=== PATIENT | female | born 1975 | race Two or more races ===

== ENCOUNTER 2019-06-16 12:49 | Outpatient (CLI) | payer OTHER | END 2019-06-16 13:18 | disposition home or self-care (01) | LOC: LAB 12:49 | DX: N20.0 Calculus of kidney (principal); C18.9 Malignant neoplasm of colon, unspecified ==

== ENCOUNTER 2019-06-17 07:18 | Outpatient (CLI) | payer OTHER | END 2019-06-17 07:21 | disposition home or self-care (01) | LOC: TOM 07:18 | DX: D12.2 Benign neoplasm of ascending colon (principal); C18.9 Malignant neoplasm of colon, unspecified ==

== ENCOUNTER 2019-06-21 11:10 | Inpatient (IN) | payer OTHER ==
[2019-06-29] MEDS ORDERED: SPRINTEC 28 DA1 EACH (07:58)
[2019-07-04] MEDS ORDERED: HYOSCYAMINE0.125 M1 SL (16:08)
[2019-07-04] MEDS ORDERED: QUESTRAN PACKET4 GM PO (16:10)
[2019-07-04] MEDS ORDERED: TUSSIN DM LIQU118 ML PO (16:10)
[2019-07-04] MEDS ORDERED: LEVAQUIN500 MG PO (16:13)
[2019-07-04] MEDS ORDERED: ULTRACET PO (16:14)
== END 2019-07-04 17:35 | disposition home or self-care (01) | DRG 330 ==
LOC: SURH 06-29 07:04 → O/R 06-29 07:04 → SURG 06-29 09:45 → SURH 06-29 15:24
PROVIDERS: ADMIT Surgery
PROC: 07TB4ZZ Resection of Mesenteric Lymphatic, Percutaneous Endoscopic Approach (ICD-10-PCS; 2019-06-29)
PROC: 0DTF4ZZ Resection of Right Large Intestine, Percutaneous Endoscopic Approach (ICD-10-PCS; principal; 2019-06-29 12:00)
DX: C18.2 Malignant neoplasm of ascending colon (principal); J98.11 Atelectasis; R59.0 Localized enlarged lymph nodes

== ENCOUNTER 2023-09-22 08:21 | Outpatient (CLI) | payer OTHER ==
[~2023-09-22 08:21] MED LIST: HYOSCYAMINE0.125 M1 SL; LEVAQUIN500 MG PO; QUESTRAN PACKET4 GM PO; SPRINTEC 28 DA1 EACH; TUSSIN DM LIQU118 ML PO; ULTRACET PO
== END 2023-09-22 08:34 | disposition home or self-care (01) ==
LOC: TOM 08:21
PROVIDERS: ATTEND Surgery
DX: K58.0 Irritable bowel syndrome with diarrhea (principal); Z86.010 Personal history of colon polyps; K56.51 Intestinal adhesions [bands], with partial obstruction; K56.50 Intestinal adhesions [bands], unspecified as to partial versus complete obstruction

== ENCOUNTER 2023-10-08 07:40 | Outpatient (CLI) | payer OTHER | END 2023-10-08 08:00 | disposition home or self-care (01) | LOC: RX STUDY 07:40 | PROVIDERS: ATTEND Surgery | DX: K58.0 Irritable bowel syndrome with diarrhea (principal); Z86.010 Personal history of colon polyps; K56.51 Intestinal adhesions [bands], with partial obstruction ==

== ENCOUNTER 2023-11-09 09:13 | Inpatient (IN) | payer OTHER ==
[~2023-11-09] VITALS: Ht 172.7 cm; Wt 74.8 kg
[~2023-11-09 09:13] MED LIST changes: +LIPO-FLAVONOID1 EACH PO
[2023-11-10 07:15] LABS: HEMATOCRIT 35.1 % (36.0-45.00); HEMOGLOBIN 12.2 g/dL (12.0-15.00); MEAN CELL VOLUME 90.9 fL (80.00-100.00); MEAN CORPUSCULAR HEMOGLOBIN 31.6 pg (27.00-32.0); MEAN CORPUSCULAR HGB CONC 34.7 g/dl (32.0-36.0); PLATELET COUNT 166 K/uL (150-450); RED BLOOD COUNT 3.86 M/uL (4.00-6.00); RED CELL DISTRIBUTION WIDTH 12.8 % (11.5-14.5)
[2023-11-10 07:18] LABS: ALBUMIN 3.5 gm/dL (3.4-5.0); CALCIUM 8.7 mg/dL (8.5-10.1); CREATININE SERUM 0.74 mg/dL (0.55-1.02); GFR 83.41; MAGNESIUM 1.9 mg/dL (1.8-2.4); PHOSPHOROUS 2.4 mg/dL (2.5-4.9); POTASSIUM 3.74 mEq/L (3.5-5.1)
[2023-11-10] MEDS ORDERED: GAS RELIEF125 MG PO (08:17)
[2023-11-10] MEDS ORDERED: LEVSIN/SL0.125 MG SL (08:17)
== END 2023-11-10 10:31 | disposition home or self-care (01) | DRG 337 ==
LOC: CIR.AMB 09:13 → O/R 16:03 → SURG 16:03
PROVIDERS: ADMIT Surgery; ATTEND Surgery
PROC: 0DNW4ZZ Release Peritoneum, Percutaneous Endoscopic Approach (ICD-10-PCS; principal; 2023-11-09 10:15)
DX: K56.50 Intestinal adhesions [bands], unspecified as to partial versus complete obstruction (principal); Z20.822 Contact with and (suspected) exposure to COVID-19